=== PATIENT | male | born 1960 | race Caucasian/White ===

== ENCOUNTER 2018-02-17 18:14 | Emergency (ER) | payer OTHER ==
[~2018-02-17] VITALS: Ht 177.8 cm; Wt 127.0 kg
[~2018-02-17 18:14] MED LIST: LISINOPRIL40 MG PO; VENLAFAXINE HCL75 MG PO
--- NOTE | 2018-02-17 19:33 | Diagnostic Imaging Report ---
EXAMINATION: Head CT without contrast. HISTORY:Trauma. COMPARISON:None. TECHNIQUE: Multidetector axial images were obtained from the foramen magnum to the vertex without contrast. The images were reconstructed using brain and bone algorithms. Thin section brain images were reformatted into coronal and sagittal planes. Intravenous contrast: None IMAGE QUALITY: Acceptable. FINDINGS: Skull/scalp: Mild right frontal scalp soft tissue edema/hematoma with trace soft tissue emphysema and focal laceration. No radiopaque foreign body. No acute depressed or displaced calvarial fracture. Parenchyma: No abnormal density. No acute hemorrhage, mass or acute major vascular territorial infarct. Arteries: No density suggestive of thrombosis. Dural sinuses: No abnormal density suggestive of thrombosis. Ventricles: No hydrocephalus or displacement. Extra-axial spaces: No abnormal density. Brain volume: Normal for age. Craniocervical junction: No mass, Chiari malformation, or basilar invagination. Sella: No mass. Paranasal/mastoid sinuses: Under pneumatization and sclerosis of right mastoid air cells possibly related to chronic inflammatory process. IMPRESSION: 1. Mild right frontal scalp soft tissue edema/hematoma and laceration. No acute fracture. 2. No acute posttraumatic intracranial abnormality. Signed by: Dr. Gege Becerra M.D. on 02/17/2018 7:30 PM
[2018-02-17] MEDS ORDERED: DIPHTH/TETANUS/ACEL. PERTUSSIS 0.5 ML SYR IM ONE (20:30)
[2018-02-17] MEDS ORDERED: LIDOCAINE HCL 1% LOCAL INJ 20 ML VIAL INJ ONE (20:30)
[2018-02-17 20:47] VITALS: BP 134/91
[2018-02-17] MEDS ORDERED: TETANUS/DIPHTHERIA TOX ADULT 0.5 ML SYR ONE (20:54)
== END 2018-02-17 21:44 | disposition home or self-care (01) ==
LOC: ER 18:14
DX: S01.01XA Laceration without foreign body of scalp, initial encounter (principal); W20.8XXA Other cause of strike by thrown, projected or falling object, initial encounter; Y92.007 Garden or yard of unspecified non-institutional (private) residence as the place of occurrence of the external cause; I10 Essential (primary) hypertension
CPT/HCPCS: 12001; 70450; 90471; 90714; 99283; J2001